=== PATIENT | male | born 1960 | race Caucasian/White ===

== ENCOUNTER 2022-07-11 06:00 | Day surgery (SDC) | payer MEDICAID ==
[~2022-07-11] VITALS: Ht 154.9 cm; Wt 83.9 kg
[2022-07-11] MEDS ORDERED: MIDAZOLAM HCL 5 MG/5 ML VIAL ONE (07:29)
[2022-07-11] MEDS ORDERED: MEPERIDINE 100 MG INJ. 100 MG/ML VIAL ONE ×2 (07:29→08:21)
[2022-07-11 10:44] VITALS: BP_SYST 115
== END 2022-07-11 09:20 | disposition home or self-care (01) ==
LOC: SDS 06:00 → SMU 06:00 → SDS 09:20
PROVIDERS: ATTEND Internal Medicine
DX: Z12.11 Encounter for screening for malignant neoplasm of colon (principal); K62.1 Rectal polyp; K57.30 Diverticulosis of large intestine without perforation or abscess without bleeding; K64.8 Other hemorrhoids; Z79.899 Other long term (current) drug therapy; Z20.822 Contact with and (suspected) exposure to COVID-19
CPT/HCPCS: 87426; 36415; 45385; 88305; 99152; G0378; J2250; J2175